=== PATIENT | female | born 1940 | race Caucasian/White ===

== ENCOUNTER 2016-06-26 09:20 | Emergency (ER) | payer BC ==
[2016-06-26 09:43] VITALS: BP 148/79; PULSE 71; TEMP 98.1; BMI 24.1
[2016-06-26] MEDS ORDERED: DIPHTH,PERTUSS(ACELL),TET 0.5 ML DISP.SYRIN IM ONE (10:17)
--- NOTE | 2016-06-26 10:22 | PDOC ---
History of Present Illness - General Chief Complaint: Injury Stated Complaint: HAND INJURY Time Seen by Provider: 06/26/16 10:17 History Source: Patient Exam Limitations: No Limitations - History of Present Illness Initial Comments: 06/26/16 17:08 Chief complaint: Laceration to left third and fourth fingers on a jh saw 4 days ago History of present illness: Patient is a 76-year-old female with a history of hypertension for [facility] for 40 years here today due to sustaining a laceration superficial to her left fourth and third palmar or fingers 4 days ago on a jh saw that she was trying to catch from falling. Patient reports that she cleanse the area well and has had a covered with a Band-Aid patient had noticed today that her left fourth finger laceration was slightly edematous tender. Patient also sure whether or not her tetanus was up-to-date. Patient reports that she did not take Band-Aid off for the last 4 days to air the wounds. Motion of the left fourth and third finger. Patient denies any numbness of fingers or hand. Occurred: reports: other (4 days ago cut to left palmar 3rd and 4th fingers ) Severity: reports: mild Pain Location: reports: upper extremity (left 4th and 3rd proximal palmar digits ) Method of Injury: Yes: other (cut on jh saw) Modifying Factors: improves with: None Loss of Consciousness: no loss of consciousness Associated Symptoms (Fall): denies symptoms Past History - Past Medical History Allergies/Adverse Reactions: Allergies Allergy/AdvReac Type Severity Reaction Status Date / Time Penicillins Allergy Verified 06/26/16 09:37 venom-honey bee Allergy Verified 06/26/16 09:37 [bee venom (honey bee)] Home Medications: Ambulatory Orders Atenolol [Tenormin -] 25 mg PO HS 07/29/12 Sulfamethoxazole/Trimethoprim [Bactrim Ds -] 1 tab PO BID #13 tablet 06/26/16 Anemia: No Asthma: No Cardiac Disorders: Yes (PALPITATIONS) CVA: No COPD: No CHF: No Dementia: No Diabetes: No GI Disorders: Yes Disorders: No HTN: No Hypercholesterolemia: No Liver Disease: No Seizures: No Thyroid Disease: No - Surgical History Abdominal Surgery: No Appendectomy: Yes Cardiac Surgery: No Cholecystectomy: No Lung Surgery: No Neurologic Surgery: No Orthopedic Surgery: No - Immunization History Immunization Up to Date: No - Psycho/Social/Smoking Cessation Hx Anxiety: No Suicidal Ideation: No Smoking Status: No Smoking History: Former smoker Have you smoked in the past 12 months: No Number of Cigarettes Smoked Daily: 0 Information on smoking cessation initiated: No Hx Alcohol Use: Yes (WINE DINNER TIME) Drug/Substance Use Hx: No Substance Use Type: None Hx Substance Use Treatment: No Review of Systems - Review of Systems Able to Perform ROS?: Yes Constitutional: No: Symptoms Reported HEENTM: No: Symptoms Reported Respiratory: No: Symptoms reported Cardiac (ROS): No: Symptoms Reported ABD/GI: No: Symptoms Reported : No: Symptoms Reported Musculoskeletal: No: Symptoms Reported Integumentary: Yes: Other (superfical laceration left palmar fingers proximal aspect) Neurological: No: Symptoms reported *Physical Exam - Vital Signs Last Vital Signs Temp Pulse Resp BP Pulse Ox 98.1 F 71 19 148/79 98 06/26/16 09:37 06/26/16 09:37 06/26/16 09:37 06/26/16 09:37 06/26/16 09:37 - Physical Exam General Appearance: Yes: Appropriately Dressed Respiratory/Chest: positive: Lungs Clear, Normal Breath Sounds Cardiovascular: positive: Regular Rhythm, Regular Rate, S1, S2 Comments:: 06/26/16 10:20 radial pulse 4 + left Extremity: positive: Normal Capillary Refill, Normal Range of Motion (left 3rd & 4th digits at dip & pip jt and mcp jts) Integumentary: positive: Other (superficial laceration 3rd palmar finger proximal aspect 0.5 cm x 0.25cm, 4th left palmar digits proximal aspect superfical laceration approx 0.75 cm x 0.25 cm with slight surrounding edema, erythema) Neurologic: positive: Alert, Normal Response, Respond to painful stimul (left 3rd and 4th fingers), Responsive. negative: Numbness, Sensory Deficit (left 3rd and 4th fingers) Procedures - Consent Consent obtained: From Patient - Additional Procedures Progress: 06/26/16 17:12 Superficial laceration to left proximal third and fourth palm or digits cleansed with Betadine and normal saline 0.9% bandaids applied Medical Decision Making - Medical Decision Making 06/26/16 17:11 Patient is a 76-year-old female with a history of hypertension for [facility] for 40 years here today due to sustaining a laceration superficial to her left fourth and third palmar or fingers 4 days ago on a jh saw that she was trying to catch from falling. Patient reports that she cleanse the area well and has had a covered with a Band-Aid patient had noticed today that her left fourth finger laceration was slightly edematous tender. Patient also sure whether or not her tetanus was up-to-date. Patient reports that she did not take Band-Aid off for the last 4 days to air the wounds. Motion of the left fourth and third finger. Patient denies any numbness of fingers or hand. Patient to left third and fourth palm or digits superficial 4 days ago slight erythema around wound on left finger Plan: Wound cleansed with Betadine and normal saline 0.9% dried well and Band-Aid applied TDAP 0.5 mL IM given Bactrim DS one tab now then twice a day 7 days She instructed that she must cleanse wounds on the left third and fourth fingers twice daily with antibacterial soap pack dry and keep cover with Band- Aid orally when out of the home must air out at night *DC/Admit/Observation/Transfer Diagnosis at time of Disposition: Laceration of finger of left hand Qualifiers: Encounter type: initial encounter Qualified Code(s): S61.219A - Laceration without foreign body of unspecified finger without damage to nail, initial encounter - Discharge Dispostion Disposition: HOME Condition at time of disposition: Stable - Prescriptions Prescriptions: Sulfamethoxazole/Trimethoprim [Bactrim Ds -] 1 tab PO BID #13 tablet - Referrals Referrals: Mark Briseno MD [Primary Care Provider] - - Patient Instructions Additional Instructions: Cleanse laceration is on left third and fourth finger twice daily with antibacterial soap and water pat dry and apply Band-Aid let air out as much as possible and at night sleeping Tetanus diphtheria and pertussis vaccine was updated Return to emergency room if area around lacerations on your third and fourth finger, or inflamed or reddened or any stiffness of your fingers or any fever Follow-up with your primary care provider within the next few days for further evaluation Patient voiced understanding of discharge instructions and all questions were answered
[2016-06-26] MEDS ORDERED: SULFAMETHOXAZOLE/TRIMETHOPRIM 800MG/160MG D.S. TABLET PO ONE (11:04)
[2016-06-26] MEDS ORDERED: SULFAMETHOXAZOLE/TRIMETHOPRIM 800MG/160MG D.S. TABLET ONE (11:06)
== END 2016-06-26 11:09 | disposition home or self-care (01) ==
LOC: JERFT 09:20
PROC: 3E0234Z Introduction of Serum, Toxoid and Vaccine into Muscle, Percutaneous Approach (ICD-10-PCS; principal; 2016-06-26)
DX: S61.218A Laceration without foreign body of other finger without damage to nail, initial encounter (principal); W27.0XXA Contact with workbench tool, initial encounter; Y93.89 Activity, other specified; Y92.018 Other place in single-family (private) house as the place of occurrence of the external cause
CPT/HCPCS: 90471; 90715; 99281-25

== ENCOUNTER 2018-08-20 09:48 | Observation (INO) | payer BC, OTHER ==
[2018-08-20 10:26] VITALS: BMI 23.3
[2018-08-20] MEDS ORDERED: morphine CARPU-JECT 4 MG/1 ML DISP.SYRIN IVPUSH ONE ×2 (10:49→14:19)
[2018-08-20] MEDS ORDERED: morphine SULFATE 4 MG/ML VIAL ONE ×2 (11:06→13:56)
[2018-08-20 11:39] LABS: BASO % 0.4 % (0-2.0); EOS % 0.5 % (0-4.5); HEMATOCRIT 35.8 % (32.4-45.2); HEMOGLOBIN 12.1 GM/dL (10.7-15.3); LYMPH % 17.3 % (8-40); MCH 31.4 pg (25.7-33.7); MCHC 33.8 g/dl (32.0-36.0); MEAN CELL VOLUME 92.9 fl (80-96); MEAN PLT VOLUME 8.6 fl (7.5-11.1); MONO % 4.7 % (3.8-10.2); NEUT % 77.1 % (42.8-82.8); PLATELET COUNT 202 K/MM3 (134-434); RBC 3.85 M/mm3 (3.60-5.2); RDW 14.5 % (11.6-15.6); WHITE BLOOD COUNT 7.6 K/mm3 (4.0-10.0)
[2018-08-20 12:08] LABS: ALBUMIN 3.6 g/dl (3.4-5.0); ALK PHOS 81 U/L (45-117); ANION GAP 10 MMOL/L (8-16); BILIRUBIN,TOTAL 0.3 mg/dL (0.2-1); BLOOD UREA NITROGEN 17 mg/dL (7-18); CALCIUM 8.7 mg/dL (8.5-10.1); CHLORIDE 107 mmol/L (98-107); CO2 22 mmol/L (21-32); CREATININE 0.5 mg/dL (0.55-1.3); GLUCOSE,RANDOM 101 mg/dL (74-106); POTASSIUM 4.1 mmol/L (3.5-5.1); SGOT/AST 38 U/L (15-37); SGPT/ALT 37 U/L (13-61); SODIUM 139 mmol/L (136-145); TOT PROT 6.8 g/dl (6.4-8.2)
--- NOTE | 2018-08-20 12:32 | EKG ---
Test Reason : Blood Pressure : / mmHG Vent. Rate : 070 BPM Atrial Rate : 070 BPM P-R Int : 204 ms QRS Dur : 158 ms QT Int : 446 ms P-R-T Axes : 058 -44 118 degrees QTc Int : 481 ms POOR DATA QUALITY, INTERPRETATION MAY BE ADVERSELY AFFECTED Atrial-sensed ventricular-paced rhythm ABNORMAL ECG WHEN COMPARED WITH ECG OF 30-JAN-2016 14:28, ELECTRONIC VENTRICULAR PACEMAKER HAS REPLACED SINUS RHYTHM Confirmed by KAUR RODRÍGUEZ MD ([id number]) on 08/20/2018 12:32:05 PM Referred By: Confirmed By:KAUR RODRÍGUEZ MD
[2018-08-20] MEDS ORDERED: KETOROLAC TROMETHAMINE 15 MG/ML VIAL IVPUSH ONE (12:33)
[2018-08-20] MEDS ORDERED: KETOROLAC TROMETHAMINE 15 MG/ML VIAL ONE (12:43)
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
--- NOTE | 2018-08-20 17:32 | CONSULT ---
Consultation: REQUESTING PROVIDER: CONSULT REQUEST: We have been asked to medically evaluate this patient for ( specify). HISTORY OF PRESENT ILLNESS: REVIEW OF SYSTEMS: CONSTITUTIONAL: Absent: fever, chills, diaphoresis, generalized weakness, malaise, loss of appetite, weight change HEENT: Absent: rhinorrhea, nasal congestion, throat pain, throat swelling, difficulty swallowing, mouth swelling, ear pain, eye pain, visual changes CARDIOVASCULAR: Absent: chest pain, syncope, palpitations, irregular heart rate, lightheadedness , peripheral edema RESPIRATORY: Absent: cough, shortness of breath, dyspnea with exertion, orthopnea, wheezing, stridor, hemoptysis GASTROINTESTINAL: Absent: abdominal pain, abdominal distension, nausea, vomiting, diarrhea, constipation, melena, hematochezia GENITOURINARY: Absent: dysuria, frequency, urgency, hesitancy, hematuria, flank pain, genital pain MUSCULOSKELETAL: Absent: myalgia, arthralgia, joint swelling, back pain, neck pain SKIN: Absent: rash, itching, pallor HEMATOLOGIC/IMMUNOLOGIC: Absent: easy bleeding, easy bruising, lymphadenopathy, frequent infections ENDOCRINE: Absent: unexplained weight gain, unexplained weight loss, heat intolerance, cold intolerance NEUROLOGIC: Absent: headache, focal weakness or paresthesias, dizziness, unsteady gait, seizure, mental status changes, bladder or bowel incontinence PSYCHIATRIC: Absent: anxiety, depression, suicidal or homicidal ideation, hallucinations. PHYSICAL EXAMINATION Vital Signs - 24 hr 08/20/18 08/20/18 08/20/18 10:20 10:29 15:44 Temperature 98.1 F 98.2 F 98.1 F Pulse Rate 70 Pulse Rate [ 74 74 Left Radial] Respiratory 21 H 21 H 20 Rate Blood Pressure 148/74 Blood Pressure 148/74 157/77 [Left Arm] O2 Sat by Pulse 100 95 Oximetry (%) GENERAL: Awake, alert, and fully oriented, in no acute distress. HEAD: Normal with no signs of trauma. EYES: Pupils equal, round and reactive to light, extraocular movements intact, sclera anicteric, conjunctiva clear. No lid lag. EARS, NOSE, THROAT: Ears normal, nares patent, oropharynx clear without exudates. Moist mucous membranes. NECK: Normal range of motion, supple without lymphadenopathy, JVD, or masses. LUNGS: Breath sounds equal, clear to auscultation bilaterally. No wheezes, and no crackles. No accessory muscle use. HEART: Regular rate and rhythm, normal S1 and S2 without murmur, rub or gallop. ABDOMEN: Soft, nontender, not distended, normoactive bowel sounds, no guarding, no rebound, no masses. No hepatomegaly or splenomegaly. MUSCULOSKELETAL: Normal range of motion at all joints. No bony deformities or tenderness. No CVA tenderness. UPPER EXTREMITIES: 2+ pulses, warm, well-perfused. No cyanosis. No clubbing. Cap refill <2 seconds. No peripheral edema. LOWER EXTREMITIES: 2+ pulses, warm, well-perfused. No calf tenderness. No peripheral edema. NEUROLOGICAL: Cranial nerves II-XII intact. Normal speech. Normal gait. PSYCHIATRIC: Cooperative. Good eye contact. Appropriate mood and affect. SKIN: Warm, dry, normal turgor, no rashes or lesions noted. Laboratory Results - last 24 hr 08/20/18 08/20/18 08/20/18 10:55 11:00 16:39 WBC 7.6 RBC 3.85 Hgb 12.1 Hct 35.8 MCV 92.9 MCH 31.4 MCHC 33.8 RDW 14.5 Plt Count 202 MPV 8.6 Absolute Neuts (auto) 5.9 Neutrophils % 77.1 Lymphocytes % 17.3 Monocytes % 4.7 Eosinophils % 0.5 Basophils % 0.4 Nucleated RBC % 0 Sodium 139 Potassium 4.1 Chloride 107 Carbon Dioxide 22 Anion Gap 10 BUN 17 Creatinine 0.5 L Creat Clearance w eGFR 118.71 Random Glucose 101 Calcium 8.7 Total Bilirubin 0.3 AST 38 H ALT 37 Alkaline Phosphatase 81 Creatine Kinase 98 129 Troponin I < 0.02 < 0.02 Total Protein 6.8 Albumin 3.6 Active Medications Generic Name Dose Route Start Last Admin Trade Name Freq PRN Reason Stop Dose Admin Acetaminophen 650 mg 08/20/18 17:24 Tylenol - PO Q6H PRN PAIN LEVEL 1-5 Atenolol 25 mg 08/20/18 22:00 Tenormin - PO BID TRISTON Tramadol HCl 50 mg 08/20/18 17:24 Ultram - PO Q6H PRN PAIN LEVEL 6-10 ASSESSMENT/PLAN: Dispo: We will continue to follow the patient. Thank you for this consultative opportunity.
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
[2018-08-20] MEDS ORDERED: traMADol HCL 50 MG TABLET ONE (21:39)
[2018-08-20] MEDS: traMADol HCL 50 MG TABLET PO PRN (21:41)
[2018-08-20] MEDS ORDERED: ATENOLOL 25 MG TABLET (FP) ONE (23:09)
[2018-08-20] MEDS: ATENOLOL 25 MG TABLET (FP) PO SCH (23:23)
[2018-08-21 04:14] VITALS: TEMP 99.6
[2018-08-21] MEDS ORDERED: ACETAMINOPHEN 325 MG TABLET (FP) ONE ×2 (06:55→17:25)
[2018-08-21] MEDS: ACETAMINOPHEN 325 MG TABLET (FP) PO PRN ×2 (06:59→17:29)
[2018-08-21] MEDS ORDERED: traMADol HCL 50 MG TABLET ONE (08:34)
[2018-08-21] MEDS: traMADol HCL 50 MG TABLET PO PRN (08:46)
[2018-08-21 08:59] LABS: ANION GAP 8 MMOL/L (8-16); BLOOD UREA NITROGEN 14 mg/dL (7-18); CALCIUM 8.1 mg/dL (8.5-10.1); CHLORIDE 108 mmol/L (98-107); CO2 24 mmol/L (21-32); CREATININE 0.6 mg/dL (0.55-1.3); GLUCOSE,RANDOM 156 mg/dL (74-106); MAGNESIUM 1.9 mg/dL (1.8-2.4); PHOSPHOROUS 3.6 mg/dL (2.5-4.9); POTASSIUM 4.1 mmol/L (3.5-5.1); SODIUM 140 mmol/L (136-145)
[2018-08-21] MEDS ORDERED: ATENOLOL 25 MG TABLET (FP) ONE (10:45)
[2018-08-21] MEDS: ATENOLOL 25 MG TABLET (FP) PO SCH (10:48)
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
--- NOTE | 2018-08-21 15:01 | ECHO ---
Name: SERGEY GUPTA Exam:Adult Echocardiogram Study Date: 08/21/2018 09:44 AM Age: 78 yrs Reason For Study: Pericardial Effusion Height: 65 in Weight: 140 lb BSA: 1.7 m2 MMode/2D Measurements & Calculations IVSd: 0.91 cm Ao root diam: 2.8 cm LVIDd: 5.2 cm LA dimension: 2.2 cm LVIDs: 3.3 cm LVPWd: 0.90 cm EDV(Teich): 126.8 ml LVOT diam: 2.0 cm ESV(Teich): 43.0 ml LAV (MOD-bp): 58.8 ml Doppler Measurements & Calculations MV E max terrance: 62.1 cm/sec Ao V2 max: 161.5 cm/sec MV A max terrance: 66.9 cm/sec Ao max P.4 mmHg MV E/A: 0.93 AI P1/2t: 611.5 msec MV dec time: 0.15 sec MARY(V,D): 2.5 cm2 AI max terrance: 275.5 cm/sec LV V1 max P.9 mmHg AI max P.4 mmHg LV V1 max: 121.3 cm/sec AI dec slope: 132.0 cm/sec2 MR max terrance: 333.3 cm/sec TR max terrance: 301.3 cm/sec MR max P.4 mmHg TR max P.4 mmHg PA V2 max: 114.0 cm/sec Med Peak E' Terrance: 8.1 cm/sec PA max P.2 mmHg Med E/e': 7.7 Lat Peak E' Terrance: 11.0 cm/sec Lat E/e': 5.7 PI Vmax: 187.3 cm/sec Procedure A complete two-dimensional transthoracic echocardiogram was performed (2D, M-mode, Doppler and color flow Doppler). Left Ventricle The left ventricular size, thickness and function are normal. The left ventricular ejection fraction is normal. Ejection Fraction = 55-60%. The left ventricular wall motion is normal. Right Ventricle The right ventricle is normal in size and function. Atria Normal left and right atrial size and function. There is a catheter/pacemaker lead seen in the right atrium. Mitral Valve There is no mitral regurgitation noted. Tricuspid Valve There is mild tricuspid regurgitation. Right ventricular systolic pressure is normal. Aortic Valve The aortic valve is trileaflet. No hemodynamically significant valvular aortic stenosis. Mild aortic regurgitation. Pulmonic Valve There is no pulmonic valvular regurgitation. Great Vessels The aortic root is normal size. Pericardium/Pleura There is no pericardial effusion. Interpretation Summary The left ventricular size, thickness and function are normal The right ventricle is normal in size and function. There is a pacemaker lead seen in the right ventricle and atrium. There is mild tricuspid regurgitation. Mild aortic regurgitation. MD Geronimo Sanchez 08/21/2018 03:00 PM
[2018-08-21 15:10] LABS: HEMATOCRIT 32.8 % (32.4-45.2); HEMOGLOBIN 11.3 GM/dL (10.7-15.3); MCH 31.9 pg (25.7-33.7); MCHC 34.5 g/dl (32.0-36.0); MEAN CELL VOLUME 92.4 fl (80-96); MEAN PLT VOLUME 8.1 fl (7.5-11.1); PLATELET COUNT 163 K/MM3 (134-434); RBC 3.54 M/mm3 (3.60-5.2); RDW 14.2 % (11.6-15.6); WHITE BLOOD COUNT 7.3 K/mm3 (4.0-10.0)
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
[2018-08-21 17:33] VITALS: BP 134/78; PULSE 76
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
== END 2018-08-21 17:33 | disposition home or self-care (01) ==
LOC: JER 09:48 → JERBED 15:56
PROVIDERS: ADMIT Internal Medicine Cardiovascular Disease; ATTEND Hospitalist
PROC: 3E0333Z Introduction of Anti-inflammatory into Peripheral Vein, Percutaneous Approach (ICD-10-PCS; principal; 2018-08-20)
PROC: 3E033NZ Introduction of Analgesics, Hypnotics, Sedatives into Peripheral Vein, Percutaneous Approach (ICD-10-PCS; 2018-08-20)
DX: I31.3 Pericardial effusion (noninflammatory) (principal); S26.91XA Contusion of heart, unspecified with or without hemopericardium, initial encounter; R07.2 Precordial pain; I10 Essential (primary) hypertension; Z85.820 Personal history of malignant melanoma of skin; Z79.82 Long term (current) use of aspirin; Z95.0 Presence of cardiac pacemaker; Z88.0 Allergy status to penicillin; Z91.038 Other insect allergy status; V43.52XA Car driver injured in collision with other type car in traffic accident, initial encounter; Y93.89 Activity, other specified; Y92.410 Unspecified street and highway as the place of occurrence of the external cause
CPT/HCPCS: 36415; 71045-TC-FY; 71250-TC; 80048; 80053; 82550; 82553; 83735; 84100; 84484; 85025; 85027; 93005; 93010; 93306-TC; 97116-GP; 97161-GP; 99285-25; G0378

== ENCOUNTER 2018-08-26 16:56 | Emergency (ER) | payer OTHER ==
[2018-08-26 17:04] VITALS: BP 142/70; PULSE 93; TEMP 97.7; BMI 23.3
[2018-08-26] MEDS ORDERED: morphine CARPU-JECT 4 MG/1 ML DISP.SYRIN IVPUSH ONE (17:23)
[2018-08-26] MEDS ORDERED: SODIUM CHLORIDE 1,000 ML IV STA (17:24)
[2018-08-26] MEDS ORDERED: morphine SULFATE 4 MG/ML VIAL ONE (17:33)
[2018-08-26 17:51] LABS: BASO % 0.9 % (0-2.0); EOS % 1.5 % (0-4.5); HEMATOCRIT 35.1 % (32.4-45.2); LYMPH % 21.8 % (8-40); MCH 31.3 pg (25.7-33.7); MCHC 34.1 g/dl (32.0-36.0); MEAN CELL VOLUME 91.8 fl (80-96); MONO % 6.4 % (3.8-10.2); NEUT % 69.4 % (42.8-82.8); PLATELET COUNT 254 K/MM3 (134-434); RBC 3.82 M/mm3 (3.60-5.2); RDW 13.8 % (11.6-15.6)
[2018-08-26 18:03] LABS: INR 1.02 (0.83-1.09)
[2018-08-26 18:06] LABS: ACTIVATED PTT 29.4 SECONDS (25.2-36.5)
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
[2018-08-26 18:24] LABS: ALBUMIN 3.7 g/dl (3.4-5.0); ALK PHOS 84 U/L (45-117); ANION GAP 9 MMOL/L (8-16); BILIRUBIN,TOTAL 0.4 mg/dL (0.2-1); BLOOD UREA NITROGEN 19 mg/dL (7-18); CALCIUM 9.1 mg/dL (8.5-10.1); CHLORIDE 106 mmol/L (98-107); CO2 26 mmol/L (21-32); CREATININE 0.7 mg/dL (0.55-1.3); GLUCOSE,RANDOM 106 mg/dL (74-106); SGOT/AST 12 U/L (15-37); SGPT/ALT 18 U/L (13-61); SODIUM 141 mmol/L (136-145); TOT PROT 6.8 g/dl (6.4-8.2)
[2018-08-26] MEDS ORDERED: LIDOCAINE 5% TOPICAL PATCH TP ONE (20:34)
[2018-08-26] MEDS ORDERED: IBUPROFEN 600 MG TABLET (FP) PO ONE ×2 (20:34→20:41)
[2018-08-26] MEDS ORDERED: LIDOCAINE 5% TOPICAL PATCH ONE (20:42)
--- NOTE | 2018-08-26 21:46 | PN ---
Teaching Attending Note Name of Resident: Enzo Miller Patient asked to be discharged before formall admitted to medicine service.
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
--- NOTE | 2018-09-09 22:29 | PDOC ---
Documentation entered by Melonie Feliciano SCRIBE, acting as scribe for Shila Flores MD. Shila Flores MD: This documentation has been prepared by the scribe, Melonie Feliciano SCRIBE, under my direction and personally reviewed by me in its entirety. I confirm that the documentation accurately reflects all work, treatment, procedures, and medical decision making performed by me. Attending Attestation - Resident Resident Name: Brady Pope - ED Attending Attestation I have performed the following: I have examined & evaluated the patient, The case was reviewed & discussed with the resident, I agree w/resident's findings & plan, Exceptions are as noted - HPI HPI: 08/26/18 18:52 this 78 yo female has had increasing rt sided ribcage pain and increasing pleuretic chest pain,inability to lay flat due to pain head ncat eyes sybil eomi neck no jvd lungs musculoskeletal + tenderness to sternum cvs [id number] abd no rebound,no guarding extremities no deformities,no edema skin warm and dry neuro axox3,ambulatory psych anxious 08/26/18 19:59 08/26/18 20:35 - Physicial Exam PE: 08/26/18 20:44 head ncat neck :no cervical midline tenderness lungs:cta b/l cvs :[id number] ++right anterior ribcage tenderness chest :+ sternal tenderness abdomen : no rebound,no guarding extremities ecchymosis that is resolving on her hands ext no deformities skin warm and dry neuro axox3 - Medical Decision Making 08/26/18 20:37 ct scan chest ++nondisplaced middle third sternal fracture 08/26/18 21:40 LABS REVIEWED and there is no anemia, the creatinine kinase =only 47,negative troponin,normal renal functions,normal liver function states 08/26/18 21:41
== END 2018-08-26 23:22 | disposition home or self-care (01) ==
LOC: JER 16:56 → UNDOADMIN 22:17 → JERBED 22:17 → JER 23:22
PROC: 3E033NZ Introduction of Analgesics, Hypnotics, Sedatives into Peripheral Vein, Percutaneous Approach (ICD-10-PCS; principal; 2018-08-26)
PROC: 3E0337Z Introduction of Electrolytic and Water Balance Substance into Peripheral Vein, Percutaneous Approach (ICD-10-PCS; 2018-08-26)
DX: R52 Pain, unspecified (principal); S22.22XD Fracture of body of sternum, subsequent encounter for fracture with routine healing; I10 Essential (primary) hypertension; V49.9XXD Car occupant (driver) (passenger) injured in unspecified traffic accident, subsequent encounter; Y93.9 Activity, unspecified; Y92.9 Unspecified place or not applicable; Z95.0 Presence of cardiac pacemaker; I48.91 Unspecified atrial fibrillation; Z85.820 Personal history of malignant melanoma of skin
CPT/HCPCS: 36415; 71250-TC; 74176-TC; 80053; 82550; 84484; 85025; 85610; 85730; 86850; 86900; 86901; 99282-25; J7030

== ENCOUNTER 2018-12-31 12:35 | Emergency (ER) | payer BC, OTHER ==
[2018-12-31 12:42] VITALS: BMI 22.9
[2018-12-31] MEDS ORDERED: predniSONE 20 MG TABLET (UD) PO ONE (13:18)
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
[2018-12-31] MEDS ORDERED: predniSONE 20 MG TABLET (UD) ONE (13:38)
[2018-12-31] MEDS ORDERED: predniSONE 10 MG TABLET (UD) ONE (13:38)
[2018-12-31 15:48] VITALS: BP 140/85; PULSE 75; TEMP 98.1
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
== END 2018-12-31 15:30 | disposition home or self-care (01) ==
LOC: JER 12:35
DX: T63.441A Toxic effect of venom of bees, accidental (unintentional), initial encounter (principal); L53.0 Toxic erythema; Y92.512 Supermarket, store or market as the place of occurrence of the external cause
CPT/HCPCS: 99281-25

== ENCOUNTER 2020-03-09 09:11 | Emergency (ER) | payer BC ==
[2020-03-09 09:21] VITALS: TEMP 98.7; BMI 22.6
[2020-03-09] MEDS ORDERED: ACETAMINOPHEN INJECTION 100 ML IVPB ONE (09:22)
[2020-03-09] MEDS ORDERED: METOCLOPRAMIDE HCL INJECTION 10 MG/2 ML VIAL IVPUSH ONE (09:50)
[2020-03-09] MEDS ORDERED: METOCLOPRAMIDE HCL INJECTION 10 MG/2 ML VIAL ONE (09:55)
[2020-03-09 10:03] VITALS: PULSE 75
[2020-03-09] MEDS ORDERED: ACETAMINOPHEN 1000 MG/100 ML VIAL (NON FORMULARY) IVPB ONE (10:13)
[2020-03-09 10:18] LABS: BASO % 0.6 % (0-2.0); EOS % 1.6 % (0-4.5); HEMATOCRIT 33.3 % (32.4-45.2); HEMOGLOBIN 11.1 GM/dL (10.7-15.3); LYMPH % 24.9 % (8-40); MCH 31.4 pg (25.7-33.7); MCHC 33.5 g/dl (32.0-36.0); MEAN CELL VOLUME 93.8 fl (80-96); MEAN PLT VOLUME 8.3 fl (7.5-11.1); NEUT % 65.9 % (42.8-82.8); PLATELET COUNT 182 K/MM3 (134-434); RBC 3.55 M/mm3 (3.60-5.2); RDW 14.5 % (11.6-15.6); WHITE BLOOD COUNT 4.8 K/mm3 (4.0-10.0)
[2020-03-09 10:24] LABS: PROTHROMBIN TIME (PATIENT) 12.3 SEC (9.7-13.0)
[2020-03-09 10:55] LABS: CHLORIDE 108 mmol/L (98-107); POTASSIUM 4.3 mmol/L (3.5-5.1); SODIUM 141 mmol/L (136-145)
[2020-03-09 10:57] LABS: ALBUMIN 3.7 g/dl (3.4-5.0); ANION GAP 7 MMOL/L (8-16); BLOOD UREA NITROGEN 15.1 mg/dL (7-18); CALCIUM 9.2 mg/dL (8.5-10.1); CO2 25 mmol/L (21-32); GLUCOSE,RANDOM 111 mg/dL (74-106)
[2020-03-09 11:00] LABS: CREATININE 0.6 mg/dL (0.55-1.3); SGOT/AST 29 U/L (15-37); SGPT/ALT 112 U/L (13-61)
[2020-03-09 11:02] LABS: BILIRUBIN,TOTAL 0.7 mg/dL (0.2-1); TOT PROT 6.4 g/dl (6.4-8.2)
[2020-03-09 11:03] LABS: ALK PHOS 108 U/L (45-117)
[2020-03-09 11:45] VITALS: BP 152/78
== END 2020-03-09 13:10 | disposition home or self-care (01) ==
LOC: JER 09:11
PROC: 3E033NZ Introduction of Analgesics, Hypnotics, Sedatives into Peripheral Vein, Percutaneous Approach (ICD-10-PCS; principal; 2020-03-09)
PROC: 3E033GC Introduction of Other Therapeutic Substance into Peripheral Vein, Percutaneous Approach (ICD-10-PCS; 2020-03-09)
DX: R51.9 Headache, unspecified (principal)
CPT/HCPCS: 36415; 70450-TC; 80053; 84484; 85025; 85610; 85730; 93005; 93010; 99285-25; J0131

== ENCOUNTER 2020-09-12 12:28 | Emergency (ER) | payer BC ==
[2020-09-12 12:43] VITALS: BMI 22.6
[2020-09-12] MEDS ORDERED: SODIUM CHLORIDE 0.9% 1000 ML INFUS.BAG IV ONE (13:40)
[2020-09-12] MEDS ORDERED: MECLIZINE HCL 25 MG TABLET (FP) PO ONE (13:40)
[2020-09-12] MEDS ORDERED: MECLIZINE HCL 25 MG TABLET (FP) ONE (14:25)
[2020-09-12 15:28] LABS: BASO % 0.6 % (0-2.0); EOS % 0.6 % (0-4.5); HEMATOCRIT 35.1 % (32.4-45.2); HEMOGLOBIN 11.9 GM/dL (10.7-15.3); LYMPH % 24.8 % (8-40); MCH 31.6 pg (25.7-33.7); MEAN PLT VOLUME 8.8 fl (7.5-11.1); MONO % 5.4 % (3.8-10.2); NEUT % 68.6 % (42.8-82.8); PLATELET COUNT 210 K/MM3 (134-434); RBC 3.77 M/mm3 (3.60-5.2); WHITE BLOOD COUNT 5.9 K/mm3 (4.0-10.0)
[2020-09-12 16:04] LABS: CHLORIDE 109 mmol/L (98-107); SODIUM 141 mmol/L (136-145)
[2020-09-12 16:09] LABS: ANION GAP 7 MMOL/L (8-16); BLOOD UREA NITROGEN 15.9 mg/dL (7-18); CALCIUM 8.6 mg/dL (8.5-10.1); CO2 25 mmol/L (21-32); GLUCOSE,RANDOM 86 mg/dL (74-106)
[2020-09-12 16:11] LABS: SGOT/AST 14 U/L (15-37); SGPT/ALT 23 U/L (13-61)
[2020-09-12 16:12] LABS: CREATININE 0.5 mg/dL (0.55-1.3)
[2020-09-12 16:13] LABS: BILIRUBIN,TOTAL 0.4 mg/dL (0.2-1); TOT PROT 6.7 g/dl (6.4-8.2)
[2020-09-12 16:14] LABS: ALK PHOS 68 U/L (45-117)
[2020-09-12 17:47] VITALS: BP 131/78; PULSE 65; TEMP 98.2
== END 2020-09-12 17:45 | disposition home or self-care (01) ==
LOC: JER 12:28
DX: R42 Dizziness and giddiness (principal)
CPT/HCPCS: 36415; 70450-TC; 71045-TC-FY; 72125-TC; 80053; 82550; 84484; 85025; 93005; 93010; 99285-25; C9803; U0003; U0005

== ENCOUNTER 2022-02-12 16:41 | Inpatient (IN) | payer BC ==
[2022-02-12 19:17] LABS: BASO % 0.6 % (0-2.0); EOS % 0.4 % (0-4.5); HEMATOCRIT 34.9 % (32.4-45.2); HEMOGLOBIN 11.7 GM/dL (10.7-15.3); LYMPH % 21.8 % (8-40); MCH 29.8 pg (25.7-33.7); MCHC 33.5 g/dl (32.0-36.0); MEAN CELL VOLUME 88.9 fl (80-96); MEAN PLT VOLUME 7.9 fl (7.5-11.1); MONO % 5.4 % (3.8-10.2); NEUT % 71.8 % (42.8-82.8); PLATELET COUNT 194 10^3/uL (134-434); RBC 3.93 M/mm3 (3.60-5.2); WHITE BLOOD COUNT 6.4 K/mm3 (4.0-10.0)
[2022-02-12 19:32] LABS: INR 1.09 (0.83-1.09); PROTHROMBIN TIME (PATIENT) 12.5 SEC (9.7-13.0)
[2022-02-12 19:34] LABS: ACTIVATED PTT 27.7 SECONDS (25.2-36.5)
[2022-02-12 19:41] LABS: ALBUMIN 3.9 g/dl (3.4-5.0); CALCIUM 9.5 mg/dL (8.5-10.1)
[2022-02-12 19:42] LABS: MAGNESIUM 2.1 mg/dL (1.8-2.4)
[2022-02-12 19:45] LABS: CREATININE 0.6 mg/dL (0.55-1.3)
[2022-02-12 19:46] LABS: BILIRUBIN,TOTAL 0.6 mg/dL (0.2-1); TOT PROT 6.6 g/dl (6.4-8.2)
[2022-02-12 19:50] LABS: N-TERMINAL BNP 2817.9 pg/ml (5-450)
[2022-02-12 21:00] LABS: EPI CELLS 10 /uL (0-25.1); HYALINE CASTS 0 /uL (0-3.1); PH,URINE 5.5 (5.0-8.0); URINE APPEARANCE CLEAR; URINE BACTERIA 7177 /uL (0-1359); URINE BILIRUBIN NEGATIVE (NEGATIVE); URINE COLOR YELLOW; URINE GLUCOSE (UA) NEGATIVE (NEGATIVE); URINE KETONE 1+ (NEGATIVE); URINE LEUK ESTERASE NEGATIVE (NEGATIVE); URINE NITRITE NEGATIVE (NEGATIVE); URINE PROTEIN NEGATIVE (NEGATIVE); URINE RBC 23 /uL (0-23.9); URINE UROBILINOGEN 0.2 mg/dL (0.2-1.0); URINE WBC 10 /uL (0-25.8)
[2022-02-12] MEDS ORDERED: ACETAMINOPHEN 325 MG TABLET (FP) PO ONE (22:36)
[2022-02-12] MEDS ORDERED: ACETAMINOPHEN 325 MG TABLET (FP) ONE (22:45)
[2022-02-12] MEDS ORDERED: FUROSEMIDE 40 MG/4 ML INJECTABLE VIAL IVPUSH ONE (22:52)
[2022-02-12] MEDS ORDERED: FUROSEMIDE 40 MG/4 ML INJECTABLE VIAL ONE (23:48)
[2022-02-13] MEDS ORDERED: ATENOLOL 25 MG TABLET (FP) ONE (09:17)
[2022-02-13] MEDS ORDERED: FUROSEMIDE 40 MG/4 ML INJECTABLE VIAL ONE (09:17)
[2022-02-13] MEDS ORDERED: diazePAM 2 MG TABLET PO PRN (09:20)
[2022-02-13] MEDS: FUROSEMIDE 40 MG/4 ML INJECTABLE VIAL IVPUSH SCH (09:25)
[2022-02-13] MEDS: ATENOLOL 25 MG TABLET (FP) PO SCH ×2 (09:26→21:07)
[2022-02-13] MEDS ORDERED: CEFTRIAXONE 1 GM in DEXTROSE 5%-WATER - 50 ML IVPB SCH (10:00)
[2022-02-13] MEDS ORDERED: diazePAM 5 MG TABLET ONE (12:07)
[2022-02-13] MEDS ORDERED: LIDOCAINE 5% TOPICAL PATCH ONE (12:46)
[2022-02-13] MEDS: LIDOCAINE 5% TOPICAL PATCH TP SCH (12:54)
[2022-02-13 16:35] VITALS: BMI 22.8
[2022-02-13] MEDS ORDERED: FLU VACC QS2022-23(6MOS UP)/PF 60 MCG/0.5 ML SYRINGE IM ONE (19:00)
[2022-02-13] MEDS ORDERED: ACETAMINOPHEN 325 MG TABLET (FP) PO ONE (20:23)
[2022-02-13] MEDS: LIDOCAINE PATCH REMOVAL MC SCH (21:07)
[2022-02-13] MEDS: traMADol HCL 50 MG TABLET PO PRN (23:14)
[2022-02-14] MEDS: FUROSEMIDE 40 MG/4 ML INJECTABLE VIAL IVPUSH SCH (09:26)
[2022-02-14] MEDS: LIDOCAINE 5% TOPICAL PATCH TP SCH (09:27)
[2022-02-14] MEDS: ATENOLOL 25 MG TABLET (FP) PO SCH ×2 (09:29→22:02)
[2022-02-14 10:36] LABS: BASO % 0.9 % (0-2.0); HEMATOCRIT 35.3 % (32.4-45.2); HEMOGLOBIN 12.1 GM/dL (10.7-15.3); LYMPH % 27.9 % (8-40); MCH 30.3 pg (25.7-33.7); MCHC 34.3 g/dl (32.0-36.0); MEAN CELL VOLUME 88.2 fl (80-96); MEAN PLT VOLUME 7.8 fl (7.5-11.1); MONO % 7.7 % (3.8-10.2); NEUT % 61.5 % (42.8-82.8); PLATELET COUNT 200 10^3/uL (134-434); RDW 15.1 % (11.6-15.6); WHITE BLOOD COUNT 6.1 K/mm3 (4.0-10.0)
[2022-02-14 11:05] LABS: ALBUMIN 3.4 g/dl (3.4-5.0); BLOOD UREA NITROGEN 12.5 mg/dL (7-18); MAGNESIUM 2.1 mg/dL (1.8-2.4)
[2022-02-14 11:08] LABS: CREATININE 0.8 mg/dL (0.55-1.3); PHOSPHOROUS 4.4 mg/dL (2.5-4.9)
[2022-02-14 11:09] LABS: BILIRUBIN,TOTAL 0.5 mg/dL (0.2-1); TOT PROT 6.3 g/dl (6.4-8.2)
[2022-02-14] MEDS: DOCUSATE SODIUM 100 MG CAPSULE (FP) PO SCH (22:02)
[2022-02-14] MEDS: traMADol HCL 50 MG TABLET PO PRN (23:13)
[2022-02-15] MEDS: LIDOCAINE PATCH REMOVAL MC SCH ×2 (00:54→23:03)
[2022-02-15] MEDS ORDERED: ATENOLOL 25 MG TABLET (FP) PO SCH (09:24)
[2022-02-15] MEDS: FUROSEMIDE 40 MG/4 ML INJECTABLE VIAL IVPUSH SCH (10:04)
[2022-02-15 12:06] LABS: BASO % 0.8 % (0-2.0); EOS % 2.9 % (0-4.5); HEMATOCRIT 35.3 % (32.4-45.2); HEMOGLOBIN 11.7 GM/dL (10.7-15.3); LYMPH % 26.7 % (8-40); MCH 29.3 pg (25.7-33.7); MCHC 33.1 g/dl (32.0-36.0); MEAN CELL VOLUME 88.6 fl (80-96); MEAN PLT VOLUME 8.6 fl (7.5-11.1); MONO % 8.3 % (3.8-10.2); NEUT % 61.3 % (42.8-82.8); PLATELET COUNT 202 10^3/uL (134-434); RBC 3.99 M/mm3 (3.60-5.2); RDW 14.9 % (11.6-15.6); WHITE BLOOD COUNT 5.6 K/mm3 (4.0-10.0)
[2022-02-15 13:10] LABS: ALBUMIN 3.1 g/dl (3.4-5.0); BLOOD UREA NITROGEN 20.2 mg/dL (7-18); CALCIUM 8.7 mg/dL (8.5-10.1); MAGNESIUM 1.9 mg/dL (1.8-2.4)
[2022-02-15 13:14] LABS: BILIRUBIN,TOTAL 0.5 mg/dL (0.2-1); CREATININE 0.7 mg/dL (0.55-1.3)
[2022-02-15 13:16] LABS: TOT PROT 5.7 g/dl (6.4-8.2)
[2022-02-15] MEDS: LIDOCAINE 5% TOPICAL PATCH TP SCH (14:42)
[2022-02-15] MEDS: traMADol HCL 50 MG TABLET PO PRN ×2 (15:15→22:58)
[2022-02-15] MEDS: POLYETHYLENE GLYCOL (HEALTHYLAX) 3350 17 GM PACKET PO SCH ×2 (15:17→23:02)
[2022-02-15] MEDS: DOCUSATE SODIUM 100 MG CAPSULE (FP) PO SCH (22:58)
[2022-02-16 10:40] LABS: BASO % 0.7 % (0-2.0); EOS % 3.2 % (0-4.5); MCH 30.1 pg (25.7-33.7); MCHC 34.3 g/dl (32.0-36.0); MEAN CELL VOLUME 87.8 fl (80-96); MEAN PLT VOLUME 8.1 fl (7.5-11.1); MONO % 7.8 % (3.8-10.2); NEUT % 61.3 % (42.8-82.8); PLATELET COUNT 189 10^3/uL (134-434); RBC 3.99 M/mm3 (3.60-5.2); RDW 15.1 % (11.6-15.6); WHITE BLOOD COUNT 6.1 K/mm3 (4.0-10.0)
[2022-02-16] MEDS: FUROSEMIDE 40 MG TABLET (FP) PO SCH (10:48)
[2022-02-16] MEDS: ATENOLOL 25 MG TABLET (FP) PO SCH (10:49)
[2022-02-16] MEDS: POLYETHYLENE GLYCOL (HEALTHYLAX) 3350 17 GM PACKET PO SCH ×2 (10:49→21:03)
[2022-02-16] MEDS: LIDOCAINE 5% TOPICAL PATCH TP SCH (10:51)
[2022-02-16] MEDS ORDERED: POTASSIUM CHLORIDE TABS 20 MEQ TABLET.ER (FP) PO ONE (11:08)
[2022-02-16 11:19] LABS: ALBUMIN 3.1 g/dl (3.4-5.0); BLOOD UREA NITROGEN 23.4 mg/dL (7-18)
[2022-02-16 11:22] LABS: CALCIUM 8.7 mg/dL (8.5-10.1); CREATININE 0.7 mg/dL (0.55-1.3); MAGNESIUM 2.2 mg/dL (1.8-2.4)
[2022-02-16 11:24] LABS: BILIRUBIN,TOTAL 0.4 mg/dL (0.2-1); TOT PROT 5.6 g/dl (6.4-8.2)
[2022-02-16] MEDS ORDERED: MAGNESIUM CITRATE 300 ML BOTTLE PO PRN (13:52)
[2022-02-16] MEDS ORDERED: BISACODYL 5 MG TABLET.DR (FP) PO ONE (13:52)
[2022-02-16] MEDS: diazePAM 5 MG TABLET PO PRN (21:03)
[2022-02-16] MEDS: DOCUSATE SODIUM 100 MG CAPSULE (FP) PO SCH (21:04)
[2022-02-16] MEDS: traMADol HCL 50 MG TABLET PO PRN (23:20)
[2022-02-16] MEDS: LIDOCAINE PATCH REMOVAL MC SCH (23:24)
[2022-02-17] MEDS ORDERED: LACTULOSE 20 GM/30 ML UDC (FOR ORAL USE ONLY) PO PRN (07:45)
[2022-02-17 08:53] LABS: BASO % 0.8 % (0-2.0); EOS % 3.2 % (0-4.5); HEMATOCRIT 34.2 % (32.4-45.2); HEMOGLOBIN 11.4 GM/dL (10.7-15.3); LYMPH % 32.2 % (8-40); MCH 29.5 pg (25.7-33.7); MCHC 33.4 g/dl (32.0-36.0); MEAN CELL VOLUME 88.3 fl (80-96); MEAN PLT VOLUME 8.4 fl (7.5-11.1); MONO % 8.8 % (3.8-10.2); PLATELET COUNT 192 10^3/uL (134-434); RBC 3.88 M/mm3 (3.60-5.2); RDW 14.6 % (11.6-15.6); WHITE BLOOD COUNT 5.5 K/mm3 (4.0-10.0)
[2022-02-17 09:15] LABS: ALBUMIN 2.9 g/dl (3.4-5.0); CALCIUM 8.5 mg/dL (8.5-10.1); MAGNESIUM 2.2 mg/dL (1.8-2.4)
[2022-02-17 09:19] LABS: CREATININE 0.7 mg/dL (0.55-1.3)
[2022-02-17 09:21] LABS: BILIRUBIN,TOTAL 0.3 mg/dL (0.2-1); TOT PROT 5.4 g/dl (6.4-8.2)
[2022-02-17] MEDS: POLYETHYLENE GLYCOL (HEALTHYLAX) 3350 17 GM PACKET PO SCH ×2 (09:53→21:26)
[2022-02-17] MEDS: ATENOLOL 25 MG TABLET (FP) PO SCH (09:54)
[2022-02-17] MEDS: LIDOCAINE 5% TOPICAL PATCH TP SCH (09:56)
[2022-02-17] MEDS: POTASSIUM CHLORIDE TABS 20 MEQ TABLET.ER (FP) PO SCH (09:56)
[2022-02-17] MEDS ORDERED: FUROSEMIDE 20 MG TABLET (FP) PO SCH (10:03)
[2022-02-17] MEDS: FUROSEMIDE 40 MG TABLET (FP) PO SCH (10:48)
[2022-02-17] MEDS: diazePAM 5 MG TABLET PO PRN (20:14)
[2022-02-17] MEDS: DOCUSATE SODIUM 100 MG CAPSULE (FP) PO SCH (21:25)
[2022-02-17] MEDS: LIDOCAINE PATCH REMOVAL MC SCH (21:26)
[2022-02-17] MEDS ORDERED: PHENYLEPHRINE HCL/COCOA BUTTER SUPPOSITORY RC PRN (23:28)
[2022-02-17] MEDS: traMADol HCL 50 MG TABLET PO PRN (23:29)
[2022-02-18 09:43] VITALS: BP 135/64; PULSE 63; RESP 19; TEMP 98.2
[2022-02-18] MEDS: POLYETHYLENE GLYCOL (HEALTHYLAX) 3350 17 GM PACKET PO SCH (09:54)
[2022-02-18] MEDS: POTASSIUM CHLORIDE TABS 20 MEQ TABLET.ER (FP) PO SCH (09:54)
[2022-02-18] MEDS: LIDOCAINE 5% TOPICAL PATCH TP SCH (09:54)
[2022-02-18] MEDS: ATENOLOL 25 MG TABLET (FP) PO SCH (09:54)
== END 2022-02-18 12:19 | disposition home health service (06) | DRG 291 ==
LOC: JER 16:41 → JERBED 22:58 → J5S 02-13 14:57
PROVIDERS: ADMIT Internal Medicine; ATTEND Nurse Practitioner Acute Care
DX: I11.0 Hypertensive heart disease with heart failure (principal); I50.33 Acute on chronic diastolic (congestive) heart failure; I48.91 Unspecified atrial fibrillation; E78.5 Hyperlipidemia, unspecified; R42 Dizziness and giddiness; R79.89 Other specified abnormal findings of blood chemistry
CPT/HCPCS: 36415; 71045-TC-FY; 71046-TC-FY; 71275-TC; 76705-TC; 80053; 81003; 82962; 83735; 83880; 84100; 84484; 85025; 85379; 85610; 85730; 87086; 87186; 93005; 93010; 93306-TC; 97116-GP; 97161-GP; 99285-25; C9803-CS; Q9967; U0003; U0005

== ENCOUNTER 2024-07-19 15:59 | Emergency (ER) | payer BC ==
[2024-07-19] MEDS ORDERED: ACETAMINOPHEN INJECTION 100 ML ONE (17:08)
[2024-07-19] MEDS ORDERED: DIPHTH,PERTUSS(ACELL),TET 0.5 ML DISP.SYRIN IM ONE (17:09)
[2024-07-19] MEDS: ACETAMINOPHEN 1000 MG/100 ML BAG IVPB ONE (17:25)
[2024-07-19] MEDS: DIPHTH,PERTUSS(ACELL),TET 0.5 ML DISP.SYRIN IM ONE (17:30)
[2024-07-19 17:40] LABS: ABSOLUTE IMMATURE GRANULOCYTES 0.03 x10^3/uL (0.0-0.031); BASOPHILS # 0.06 x10^3/uL (0.01-0.08); EOSINOPHIL % 0.5 % (0.7-5.8); EOSINOPHILS # 0.04 x10^3/uL (0.04-0.36); HEMOGLOBIN 11.7 g/dL (11.2-15.7); MCHC 31.6 g/dl (32.2-35.5); MEAN CELL VOLUME 90.7 fl (79.4-94.8); MEAN PLT VOLUME 10.1 fl (9.4-12.3); MONOCYTE # 0.48 x10^3/uL (0.24-0.86); MONOCYTE % 6.6 % (4.7-12.5); PLATELET COUNT 165 x10^3/uL (182-369); RDW 13.8 % (12.5-17.0)
[2024-07-19 17:48] LABS: INR 1.27 (0.83-1.09); PROTHROMBIN TIME (PATIENT) 13.8 SEC (9.7-13.0)
[2024-07-19 17:50] LABS: ACTIVATED PTT 30.9 SECONDS (25.2-36.5)
[2024-07-19 18:18] LABS: POTASSIUM 4.2 mmol/L (3.5-5.1)
[2024-07-19 18:20] LABS: CALCIUM 9.1 mg/dL (8.5-10.1)
[2024-07-19 18:21] LABS: ALBUMIN 3.8 g/dl (3.4-5.0); BLOOD UREA NITROGEN 20.9 mg/dL (7-18)
[2024-07-19 18:23] VITALS: TEMP 98.1; BMI 21.6
[2024-07-19 18:23] LABS: CREATININE 0.8 mg/dL (0.55-1.3)
[2024-07-19 18:25] LABS: BILIRUBIN,TOTAL 0.6 mg/dL (0.2-1); TOT PROT 6.6 g/dl (6.4-8.2)
[2024-07-19 21:10] VITALS: BP 136/74; PULSE 61; RESP 17
== END 2024-07-19 21:26 | disposition home or self-care (01) ==
LOC: JER 15:59
PROC: 0HQ1XZZ Repair Face Skin, External Approach (ICD-10-PCS; principal; 2024-07-19)
PROC: 3E033NZ Introduction of Analgesics, Hypnotics, Sedatives into Peripheral Vein, Percutaneous Approach (ICD-10-PCS; 2024-07-19)
PROC: 3E0234Z Introduction of Serum, Toxoid and Vaccine into Muscle, Percutaneous Approach (ICD-10-PCS; 2024-07-19)
DX: S01.81XA Laceration without foreign body of other part of head, initial encounter (principal); R07.89 Other chest pain; Z23 Encounter for immunization; W01.0XXA Fall on same level from slipping, tripping and stumbling without subsequent striking against object, initial encounter
CPT/HCPCS: 12013; 36415; 70450-TC; 70486-TC; 71045-TC-FY; 71101-TC-RT-FY; 72125-TC; 80053; 84484; 85025; 85610; 85730; 90471; 90715; 93005; 93010; 96374; 99285-25; J0131

== ENCOUNTER 2024-07-23 15:25 | Observation (INO) | payer BC ==
[2024-07-23] MEDS ORDERED: ACETAMINOPHEN INJECTION 100 ML ONE (16:49)
[2024-07-23] MEDS: ACETAMINOPHEN 1000 MG/100 ML BAG IVPB ONE (16:50)
[2024-07-23] MEDS: LIDOCAINE 4% PATCH TP ONE (16:50)
[2024-07-23 17:15] LABS: ABSOLUTE IMMATURE GRANULOCYTES 0.02 x10^3/uL (0.0-0.031); BASOPHILS # 0.05 x10^3/uL (0.01-0.08); EOSINOPHIL % 1.3 % (0.7-5.8); EOSINOPHILS # 0.09 x10^3/uL (0.04-0.36); HEMATOCRIT 37.1 % (34.1-44.9); MCHC 32.3 g/dl (32.2-35.5); MEAN CELL VOLUME 90.3 fl (79.4-94.8); MEAN PLT VOLUME 10.5 fl (9.4-12.3); MONOCYTE # 0.51 x10^3/uL (0.24-0.86); MONOCYTE % 7.3 % (4.7-12.5); PLATELET COUNT 189 x10^3/uL (182-369); RDW 13.9 % (12.5-17.0)
[2024-07-23 17:30] LABS: INR 1.24 (0.83-1.09); PROTHROMBIN TIME (PATIENT) 13.5 SEC (9.7-13.0)
[2024-07-23 17:33] LABS: ACTIVATED PTT 29.6 SECONDS (25.2-36.5)
[2024-07-23 17:41] LABS: POTASSIUM 3.8 mmol/L (3.5-5.1)
[2024-07-23 17:43] LABS: CALCIUM 9.9 mg/dL (8.5-10.1)
[2024-07-23 17:44] LABS: ALBUMIN 4.1 g/dl (3.4-5.0); BLOOD UREA NITROGEN 20.5 mg/dL (7-18)
[2024-07-23 17:47] LABS: CREATININE 0.8 mg/dL (0.55-1.3)
[2024-07-23 17:49] LABS: BILIRUBIN,TOTAL 0.6 mg/dL (0.2-1)
[2024-07-23] MEDS: LACTATED RINGERS SOLUTION 1000 ML INFUS.BAG IV ONE (18:13)
[2024-07-23] MEDS ORDERED: traMADol HCL 50 MG TABLET ONE (21:15)
[2024-07-23] MEDS: traMADol HCL 50 MG TABLET PO ONE (21:33)
[2024-07-23] MEDS ORDERED: traMADol HCL 50 MG TABLET PO PRN (21:38)
[2024-07-23] MEDS: KETOROLAC TROMETHAMINE 15 MG/ML VIAL IVPUSH ONE (22:36)
[2024-07-24] MEDS: ACETAMINOPHEN 325 MG TABLET (FP) PO PRN (01:08)
[2024-07-24 02:48] VITALS: BMI 22.4
[2024-07-24] MEDS: LIDOCAINE PATCH REMOVAL MC SCH ×2 (02:49→22:00)
[2024-07-24] MEDS: FUROSEMIDE 20 MG TABLET (FP) PO SCH (09:28)
[2024-07-24] MEDS: SPIRONOLACTONE 25 MG TABLET PO SCH (09:28)
[2024-07-24] MEDS: LIDOCAINE 4% PATCH TP SCH (09:30)
[2024-07-24] MEDS: APIXABAN 2.5 MG TABLET PO SCH (09:30)
[2024-07-24] MEDS: ACETAMINOPHEN 325 MG TABLET (FP) PO SCH (11:39)
[2024-07-24] MEDS: traMADol HCL 50 MG TABLET PO ONE (21:56)
[2024-07-25 03:47] VITALS: RESP 18
[2024-07-25 10:12] VITALS: BP 127/63; PULSE 64; TEMP 98
== END 2024-07-25 11:07 | disposition home or self-care (01) ==
LOC: JER 15:25 → JERBED 20:49 → J8W 23:05
PROVIDERS: ADMIT Internal Medicine; ATTEND Nurse Practitioner Family
PROC: 3E033NZ Introduction of Analgesics, Hypnotics, Sedatives into Peripheral Vein, Percutaneous Approach (ICD-10-PCS; principal; 2024-07-23)
PROC: 3E0337Z Introduction of Electrolytic and Water Balance Substance into Peripheral Vein, Percutaneous Approach (ICD-10-PCS; 2024-07-23)
PROC: 3E0337Z Introduction of Electrolytic and Water Balance Substance into Peripheral Vein, Percutaneous Approach (ICD-10-PCS; 2024-07-23)
DX: S22.42XS Multiple fractures of ribs, left side, sequela (principal); W18.39XS Other fall on same level, sequela; X58.XXXS Exposure to other specified factors, sequela; Z90.79 Acquired absence of other genital organ(s); R00.1 Bradycardia, unspecified; M25.551 Pain in right hip; M25.552 Pain in left hip
CPT/HCPCS: 36415; 71260-TC; 74177-TC; 80053; 85025; 85610; 85730; 86850; 86900; 86901; 93005; 93010; 94010; 96361; 96374; 97116-GP; 97161-GP; 99285-25; G0378; J0131

== ENCOUNTER 2025-01-18 11:28 | Emergency (ER) | payer BC ==
[2025-01-18 11:42] VITALS: BMI 21.6
[2025-01-18] MEDS ORDERED: ACETAMINOPHEN INJECTION 100 ML ONE (13:04)
[2025-01-18] MEDS ORDERED: LIDOCAINE 5% TOPICAL PATCH ONE (13:04)
[2025-01-18] MEDS ORDERED: KETOROLAC TROMETHAMINE 15 MG/ML VIAL ONE (13:05)
[2025-01-18] MEDS: ACETAMINOPHEN 1000 MG/100 ML BAG IVPB ONE (13:30)
[2025-01-18] MEDS: KETOROLAC TROMETHAMINE 15 MG/ML VIAL IVPUSH ONE (13:30)
[2025-01-18] MEDS: LIDOCAINE 5% TOPICAL PATCH TP ONE (13:30)
[2025-01-18 13:57] LABS: ABSOLUTE IMMATURE GRANULOCYTES 0.02 x10^3/uL (0.0-0.031); BASOPHILS # 0.04 x10^3/uL (0.01-0.08); EOSINOPHIL % 0.3 % (0.7-5.8); EOSINOPHILS # 0.02 x10^3/uL (0.04-0.36); MCHC 32.6 g/dl (32.2-35.5); MEAN CELL VOLUME 90.4 fl (79.4-94.8); MEAN PLT VOLUME 10.6 fl (9.4-12.3); MONOCYTE # 0.41 x10^3/uL (0.24-0.86); MONOCYTE % 6.3 % (4.7-12.5); RDW 13.8 % (12.5-17.0)
[2025-01-18 14:06] LABS: INR 1.34 (0.83-1.09); PROTHROMBIN TIME (PATIENT) 14.6 SEC (9.7-13.0)
[2025-01-18 14:09] LABS: ACTIVATED PTT 32.1 SECONDS (25.2-36.5)
[2025-01-18] MEDS ORDERED: LIDOCAINE HCL 1%, 10 MG/ML (20ML VIAL) ONE (14:28)
[2025-01-18] MEDS: LIDOCAINE HCL 1%, 10 MG/ML (50 mL VIAL) SQ ONE (14:30)
[2025-01-18 14:53] LABS: ERYTHROCYTE SEDIMENTATION RATE 8 mm/hr (0-30)
[2025-01-18 15:00] LABS: GLUCOSE,RANDOM 79.0 mg/dL (74-106); TOT PROT 6.7 g/dl (6.4-8.2)
[2025-01-18 15:01] LABS: CO2 23.0 mmol/L (21-32)
[2025-01-18 15:03] LABS: ALK PHOS 75.0 U/L (40-150)
[2025-01-18 15:05] VITALS: BP 143/67; PULSE 61; RESP 18; TEMP 98.2
[2025-01-18 15:05] LABS: CREATININE 0.69 mg/dL (0.55-1.3); SGOT/AST 28.0 U/L (5-34); SGPT/ALT 29.0 U/L (0-55)
[2025-01-18 15:26] LABS: HCV DIAGNOSTIC IN-HOUSE W/RFLX NON-REACTIVE (NONREACTIVE); HIV INTERPRETATION NEGATIVE (NEGATIVE)
[2025-01-18] MEDS ORDERED: LIDOCAINE PATCH REMOVAL MC ONE (22:00)
== END 2025-01-18 18:20 | disposition home or self-care (01) ==
LOC: JER 11:28
PROC: 3E033NZ Introduction of Analgesics, Hypnotics, Sedatives into Peripheral Vein, Percutaneous Approach (ICD-10-PCS; principal; 2025-01-18)
PROC: 3E0333Z Introduction of Anti-inflammatory into Peripheral Vein, Percutaneous Approach (ICD-10-PCS; 2025-01-18)
PROC: 3E013BZ Introduction of Anesthetic Agent into Subcutaneous Tissue, Percutaneous Approach (ICD-10-PCS; 2025-01-18)
DX: M25.562 Pain in left knee (principal); M25.462 Effusion, left knee; R68.83 Chills (without fever); M79.662 Pain in left lower leg
CPT/HCPCS: 20611; 36415; 72170-TC-FY; 73562-TC-LT-FY; 80053; 85025; 85610; 85651; 85730; 86140; 86803; 87389; 93005; 93010; 93970-TC; 99285-25